=== PATIENT | male | born 1950 | race Caucasian/White ===

== ENCOUNTER → 2019-10-18 | Outpatient (CLI) | payer MEDICARE, MEDICAID ==
[~2019-10-18] MED LIST: LISI2.5T PO; METO25TA4 PO; PANT40TA5 PO; SIMV40TA18 PO
== END | disposition home or self-care (01) ==
LOC: LAB 09:17
PROVIDERS: ATTEND Registered Nurse
DX: Z11.59 Encounter for screening for other viral diseases (principal)
CPT/HCPCS: C9803; U0003

== ENCOUNTER → 2019-10-20 | Day surgery (SDC) | payer MEDICARE, MEDICAID ==
[~2019-10-20] MED LIST changes: +IPRATRPIUM/ALBUTEROL 0.5/2.5MG 3 ML NEBU. NEB PRN; +IV RINGERS SOLUTION,LACTATED 1,000 ML IV SCH; +ONDANSETRON PF 4 MG/2 ML VIAL. IV PRN; +PROPOFOL 10,000 MCG/ML (20ML) VIAL IV ONE
[2019-10-20 12:11] VITALS: BP 131/80
--- NOTE | 2019-10-24 09:07 | PATHOLOGY ---
[facility] Accession Number: [id number] . 01 Material submitted: . PART A: colon - SIGOID COLON POLYP. Modifiers: sigmoid PART B: colon - SIGMOID COLON POLYP #2. Modifiers: sigmoid, 2 . 02 Diagnosis: A. Colon biopsies, sigmoid colon polyp #1: - Hyperplastic polyp. . B. Colon biopsies, sigmoid colon polyp #2: - Hyperplastic polyp. (JPM:rosa isela; 10/23/2019) S 10/23/2019 1644 Local . 02 Comment: There are no adenomatous changes or evidence of malignancy. (JPM:rosa isela; 10/23/2019) . 02 Electronically signed: . Brien Winters MD, Pathologist NPI- [id number] . 01 Gross description: . A. The specimen is received in formalin labeled "Schieber, Jamil, sigmoid" and consists of multiple fragments of pink-la tissue measuring 1.1 x 0.3 x 0.2 cm in aggregate which are entirely submitted in A1. . B. The specimen is received in formalin labeled "Schieber, Jamil, sigmoid polyp #2" and consists of 2 fragments of pink-la tissue measuring 1.0 x 0.4 x 0.3 cm in aggregate which are entirely submitted in B1. (JM; 10/20/2019) JFQ/JFQ 10/21/2019 1859 Local . 02 Pathologist provided ICD-10: K63.5 . 02 CPT . 804779, [id number] Specimen Comment: A courtesy copy of this report has been sent to [phone] Specimen Comment: Report sent to Performed at: [address], [place] [id number] MD Frederick Gamez MD Phone: [phone] Performed at: [address] [id number] MD Brien Winters MD Phone: [phone]
== END | disposition home or self-care (01) ==
LOC: SURG 09:20
PROVIDERS: ATTEND Internal Medicine Gastroenterology
DX: Z09 Encounter for follow-up examination after completed treatment for conditions other than malignant neoplasm (principal); K63.5 Polyp of colon; K57.30 Diverticulosis of large intestine without perforation or abscess without bleeding; K25.9 Gastric ulcer, unspecified as acute or chronic, without hemorrhage or perforation; K21.9 Gastro-esophageal reflux disease without esophagitis; K44.9 Diaphragmatic hernia without obstruction or gangrene; E78.00 Pure hypercholesterolemia, unspecified; I10 Essential (primary) hypertension; Z79.899 Other long term (current) drug therapy; Z86.03 Personal history of neoplasm of uncertain behavior; Z88.8 Allergy status to other drugs, medicaments and biological substances
CPT/HCPCS: 43235; 45381; 45385; 88305; J2704; J7120; U0003-CS